=== PATIENT | female | born 1950 | race Caucasian/White ===

== ENCOUNTER 2020-10-04 08:42 | Emergency (ER) | payer OTHER ==
[~2020-10-04] VITALS: Ht 157.5 cm; Wt 63.5 kg
[2020-10-04 08:58] VITALS: BP_SYST 173
[2020-10-04] MEDS ORDERED: LIDOCAINE 1% 10 MG/ML, 20 ML MDV INJ ONE (09:15)
[2020-10-04] MEDS ORDERED: TRAM50TA2 PO (10:45)
[2020-10-04 12:08] VITALS: BP_SYST 173
== END 2020-10-04 12:10 | disposition home or self-care (01) ==
LOC: SED 08:42
DX: S01.01XA Laceration without foreign body of scalp, initial encounter (principal); E78.00 Pure hypercholesterolemia, unspecified; I10 Essential (primary) hypertension; Z88.1 Allergy status to other antibiotic agents; Z86.73 Personal history of transient ischemic attack (TIA), and cerebral infarction without residual deficits; W18.39XA Other fall on same level, initial encounter; Y93.89 Activity, other specified; Y92.89 Other specified places as the place of occurrence of the external cause; Y99.8 Other external cause status
CPT/HCPCS: 70450-TC; 76376; 99284

== ENCOUNTER 2020-10-14 09:30 | Emergency (ER) | payer OTHER ==
[~2020-10-14] VITALS: Ht 144.8 cm; Wt 66.2 kg
[~2020-10-14 09:30] MED LIST: TRAM50TA2 PO
[2020-10-14 09:39] VITALS: BP_SYST 151
--- NOTE | 2020-10-14 09:40 | NUR ---
Placed in room 7 . 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 To gown for exam. Side rails up.
--- NOTE | 2020-10-14 09:45 | NUR ---
Pt walked in to ER for wound check and staple removal to laceration on head. [place] in place, no drainage, redness or swelling noted. V/S stable, no acute distress noted.
--- NOTE | 2020-10-14 09:50 | NUR ---
ER Dr. Man at bedside examining patient.
--- NOTE | 2020-10-14 09:54 | NUR ---
Alex removed by Dr. Man pt tolerated well.
--- NOTE | 2020-10-14 10:00 | NUR ---
Patient given written and verbal discharge instructions and verbalizes understanding. ER MD discussed with patient the results and treatment provided. Patient in stable condition. ID arm band removed. No prescriptions given. Patient educated on pain management and to follow up with PMD. Pain Scale 0. Opportunity for questions provided and answered. Medication side effect fact sheet provided.
[2020-10-14 10:05] VITALS: BP_SYST 151
== END 2020-10-14 10:00 | disposition home or self-care (01) ==
LOC: SED 09:30
DX: S01.01XD Laceration without foreign body of scalp, subsequent encounter (principal); I10 Essential (primary) hypertension; E78.00 Pure hypercholesterolemia, unspecified; Z88.6 Allergy status to analgesic agent; X58.XXXD Exposure to other specified factors, subsequent encounter
CPT/HCPCS: 99281